=== PATIENT | male | born 1985 | race African-American/Black ===

== ENCOUNTER 2018-11-30 13:29 | Emergency (ER) | payer MEDICAID ==
[~2018-11-30] VITALS: Ht 193 cm; Wt 142.9 kg
[2018-11-30 13:34] VITALS: BP 143/78
== END 2018-11-30 14:21 | disposition home or self-care (01) ==
LOC: ER 13:29
DX: L24.9 Irritant contact dermatitis, unspecified cause (principal)
CPT/HCPCS: Z7502